=== PATIENT | male | born 1970 | race Caucasian/White ===

== ENCOUNTER 2024-02-08 12:56 | Outpatient (POV) | payer MEDICARE, SELFPAY ==
--- NOTE | 2024-02-08 13:11 | EXP.PAIN.OV ---
HPI Data of Consult Patient: new to practice Consult date: 02/08/24 Requesting Physician: Torri Barillas APRN Primary Care Provider: Torri Dick APRN Consult Narrative Reason for consult: Low back pain, bilateral hip pain, bilateral knee pain History of present illness: Mr. Mayo is a 54 year old male who presents today as a new patient. He is a referral from Torri Dick. Today he rates his pain a 5 out of 10. Patient states he has pain throughout his low back that does go into his bilateral hips and into his upper thigh as well as bilateral knee pain. Patient does state the low back pain is going on for years and that back in 1996 he did have a laminectomy. Patient states that he had huge difference of improvement following that initial surgery. Patient states that his pain is a constant uncomfortable sensation that never lets up. He does state the pain is worse with increased activity or ambulation. He states he cannot walk for long distances due to the worsening pain. He states he has trouble bending over due to the pain. Patient states that he did try oral medications including prior pain medications along with heat and ice and topicals with minimal relief. Patient has done physical therapy in the past and only got some improvement. He does try and stay very active and do daily exercising and stretching for longer than 12 weeks with no additional relief. Patient does take gabapentin currently however states that it really does not provide any additional improvement. Patient does state that he has had longtime use of steroids with a combination of orals as well as injection therapy. Patient states his last injection was about 8 months ago they are in [place] at a pain management. 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 Patient states he did have to undergo bilateral hip replacements due to this. Patient states that he is trying to avoid any additional steroid use.Patient is currently on gabapentin 800 mg 4 times a day from an outside provider. His Agustin has been reviewed and is appropriate. CC: Torri Barillas APRN [facility] Disclaimer: The information contained in this section may have been updated after the patient was seen, as this information can be updated by other users. Social History Smoking Status: Unknown if ever smoked alcohol intake: never current occupational status: other Travel in the last 8 weeks: None Review of Systems Review of Systems Review of systems:: pertinent systems reviewed and negative unless documented below Review of systems (narrative): Review of Systems: General: No recent weight changes, no fever, no sleep disturbances Respiratory: No cough, no shortness of air, no recurring pulmonary infections Cardiovascular/peripheral vascular: No chest pain, no palpitations, no edema, no shortness of breath Gastrointestinal: No new onset incontinence, normal bowel movements reported Genitourinary: No new onset incontinence Musculoskeletal: Low back pain, bilateral hip pain, upper thigh pain, bilateral knee pain Psychiatric: [Normal mood/affect] Neurological: [Denies weakness in extremities], [denies balance issues] Meds Home Medications and Allergies New Prescriptions to Start Prescriptions: Objective Narrative: Physical Exam: General: Alert and oriented x3, no acute distress, pleasant and cooperative Lungs: Respirations even and unlabored, symmetrical chest expansion Eyes: PERRL Musculoskeletal: Flexion and extension of lumbar [spine] somewhat guarded secondary to pain, [antalgic gait noted] point tenderness along bilateral SIs with positive bilateral Keron's, Maggi's, Gaenslen's, compression and distraction exam Neurological: Speech clear, no gross sensory deficit Additional findings Additional findings: MRI lumbar spine without contrast 10/29/2022 [facility] Findings: Degenerative retrolisthesis of L5 on S1. Alignment is otherwise normal. Conus is unremarkable ending at L1. T12-L2 no significant canal or neuroforaminal stenosis L2-L3: Minimal annular bulge. No canal or foraminal stenosis L3-L4: Epidural lipomatosis. Moderate to severe compression of the thecal sac with near complete loss of CSF between the cauda equina roots no neuroforaminal stenosis L4-L5: Disc bulge with prominent epidural fat. Moderate to severe compression of the thecal sac. AP thecal sac dimension at midline is reduced to 5 mm. Probable cauda equina compression. No neuroforaminal stenosis L5-S1 left laminectomy. Thickening of the descending left S1 nerve roots which is compressed between endplate osteophyte and the left facet joint. Prominent epidural fat. Moderate spinal canal stenosis. 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 Patient was counseled that he does have significant findings consistent with sacroiliitis as well as possible injections in future for his spondylosis. Patient was counseled that we do primarily rely on injection therapy and it is at his discretion if he would like to proceed forward with injections at a later date. I will order the patient a compounded cream. Patient will return to clinic in 1 month for reevaluation of symptoms and plan of care. Patient has been instructed to contact the clinic with any concerns before the next appointment. Dr. Quiroga has reviewed this note and agrees with this plan of care. This note was dictated using voice recognition software and make contain errors or omissions. All injections are used with Lidocaine or Bupivacaine and Depo Medrol.
[2024-02-08 15:33] VITALS: BP 122/52; PULSE 71; RESP 18; O2SAT 92; BMI 33.9
== END 2024-02-08 23:59 | disposition home or self-care (01) ==
PROVIDERS: PCP Nurse Practitioner Family; Visit Provider Nurse Practitioner Family
DX: M46.1 Sacroiliitis, not elsewhere classified (principal); M51.369 Other intervertebral disc degeneration, lumbar region without mention of lumbar back pain or lower extremity pain; M25.78 Osteophyte, vertebrae; M48.061 Spinal stenosis, lumbar region without neurogenic claudication
CPT/HCPCS: 99202; G0463